=== PATIENT | female | born 1960 | race African-American/Black ===

== ENCOUNTER 2018-02-09 01:23 | Inpatient (IN) | payer OTHER ==
[2018-02-09] MEDS ORDERED: LORazepam 2 MG/ML VIAL ONE (01:43)
[2018-02-09] MEDS ORDERED: FENTANYL CITR 100 MCG/2 ML ONE (01:44)
[2018-02-09] MEDS ORDERED: NA CHLORIDE 0.9% 1,000 ML ONE (01:44)
[2018-02-09 02:28] LABS: Bilirubin Direct 0.2 mg/dL (0-0.2); Potassium 4.2 mmol/L (3.5-5.1); Protein, Total 7.7 g/dL (6.4-8.2)
[2018-02-09 02:29] LABS: Absolute Lymphocytes (CBC) 1.1 K/uL (0.7-4.9); Absolute Monocytes 0.3 K/uL (0.1-1.3); Absolute Neutrophil 4.2 K/uL (1.8-8.0); Basophils % 0.4 % (0-1.3); Eosinophils % 1.4 % (0-4.4); Hematocrit 41.2 % (36.0-45.0); Lymphocytes % 19.3 % (15.3-44.8); MCH 30.2 pg (27.0-35.0); MCV 87.8 fL (80-100); MPV 10.6 fL (7.6-11.3); Monocytes % 5.4 % (3.3-12.3); RBC Red Blood Cell Count 4.69 M/uL (3.86-4.86)
[2018-02-09 04:06] LABS: Urine Blood NEGATIVE (NEG); Urine Glucose NEGATIVE (NEG); Urine Protein NEGATIVE (NEG)
[2018-02-09 04:14] LABS: Urine Culture Reflex Order NOT NEEDED
[2018-02-09 04:15] LABS: Urine Bacteria <20 /HPF (<20); Urine RBC <5 /HPF (NONE SEEN)
--- NOTE | 2018-02-09 05:01 | ER ---
Nurse's Notes [facility] Name: Emmy Ayala Age: 57 yrs Sex: Female : 1960 Arrival Date: 02/09/2018 Time: 01:24 Bed 7 Private MD: Wade Tabares Diagnosis: Diverticular disease of intestine Presentation: 02/09 01:30 Presenting complaint: Patient states: Abdominal pain to LLQ, worsening over past 2 lp1 days; States hx of diverticulitis; Denies any nausea, vomiting. Transition of care: patient was not received from another setting of care. Onset of symptoms was February 09, 2018. Risk Assessment: Do you want to hurt yourself or someone else? Patient reports no desire to harm self or others. Initial Sepsis Screen: Does the patient meet any 2 criteria? No. Patient's initial sepsis screen is negative. Does the patient have a suspected source of infection? No. Patient's initial sepsis screen is negative. Care prior to arrival: None. 01:30 Method Of Arrival: Wheelchair lp1 01:30 Acuity: JANAK 3 lp1 Historical: - Allergies: 01:54 No Known Allergies; lp1 - Home Meds: 01:54 Lotensin Oral [Active]; citalopram 20 mg tab 1 tab once daily [Active]; lp1 - PMHx: 01:54 Hypertension; Depression; lp1 - PSHx: 01:54 Tubal ligation; lp1 - Immunization history:: Adult Immunizations up to date. - Social history:: Smoking status: Patient/guardian denies using tobacco. - Ebola Screening: : No symptoms or risks identified at this time. Screenin:54 Abuse screen: Denies threats or abuse. Denies injuries from another. Nutritional lp1 screening: No deficits noted. Tuberculosis screening: No symptoms or risk factors identified. Fall Risk None identified. Assessment: 01:50 General: Appears uncomfortable, Behavior is appropriate for age. Pain: Complains of lp1 pain in left lower quadrant Pain currently is 9 out of 10 on a pain scale. Quality of pain is described as sharp, Pain began 2-3 days ago. Aggravated by increased activity, repositioning. Neuro: Level of Consciousness is awake, alert, obeys commands, Oriented to person, place, time, situation. Cardiovascular: Patient's skin is warm and dry. Respiratory: Respiratory effort is even, unlabored. GI: Abdomen is flat, Bowel sounds present X 4 quads. Abdomen is tender to palpation in left lower quadrant Reports lower abdominal pain. : Denies burning with urination. EENT: No signs and/or symptoms were reported regarding the EENT system. Derm: Skin is intact, Skin is dry, Skin is normal. Musculoskeletal: Circulation, motion, and sensation intact. 02:07 Reassessment: CT notified of patient completing oral contrast at this time. lp1 03:00 Reassessment: Patient resting, eyes closed, respirations unlabored. lp1 04:00 Reassessment: Patient returned from bathroom; states pain tolerable at this time. lp1 05:00 Reassessment: Patient appears in no apparent distress at this time. Patient resting, lp1 eyes closed, respirations unlabored. 05:45 Reassessment: Attempted to call report at this time, nurse will call back. lp1 06:00 Reassessment: Patient ambulating to bathroom at this time; states pain returning, lp1 provider notified. Vital Signs: 01:30 BP 147 / 78; Pulse 57; Resp 16; Temp 98.9(O); Pulse Ox 99% on R/A; Weight 67.59 kg; lp1 Height 5 ft. 6 in. (167.64 cm); Pain 9/10; 02:30 BP 132 / 80; Pulse 52; Resp 16; Pulse Ox 99% on R/A; lp1 04:00 BP 138 / 80; Pulse 51; Resp 16; Pulse Ox 98% on R/A; lp1 05:00 BP 123 / 76; Pulse 52; Resp 16; Pulse Ox 99% on R/A; lp1 05:50 BP 129 / 82; Pulse 55; Resp 16; Pulse Ox 98% on R/A; lp1 01:30 Body Mass Index 24.05 (67.59 kg, 167.64 cm) lp1 ED Course: 01:24 Patient arrived in ED. am2 01:24 Wade Tabares MD is Private Physician. am2 01:30 [facility] snw 01:30 Antolin Do MD is Attending Physician. snw 01:33 Joelle Avila, SHAYY is Primary Nurse. lp1 01:39 Initial lab(s) drawn, by me, sent to lab. First set of blood cultures drawn by me, bp Second set of blood cultures drawn by me. Inserted saline lock: 22 gauge in right antecubital area, using aseptic technique. Blood collected. 01:49 Triage completed. lp1 01:50 Arm band placed on left wrist. lp1 01:54 Patient has correct armband on for positive identification. Placed in gown. Bed in low lp1 position. Call light in reach. Pulse ox on. NIBP on. 03:[address] via wheelchair. kw1 03:47 CT completed. Patient tolerated procedure well. Patient moved back from CT. kw1 03:49 CT Abd/Pelvis - W/Contrast In Process Unspecified. EDMS 03:57 Urine Microscopic Only Sent. ds4 03:57 Urine Culture Sent. ds4 04:00 Urine Dipstick--Ancillary (enter results) Sent. ds4 04:00 Basic Metabolic Panel Sent. ds4 04:00 CBC with Diff Sent. ds4 04:00 Hepatic Function Sent. ds4 05:00 Antolin Williamson MD is Hospitalizing Provider. ma2 05:40 No provider procedures requiring assistance completed. Patient admitted, IV remains in lp1 place. Administered Medications: 01:36 CANCELLED (none available): Phenergan 6.25 mg IVP once snw 01:46 Drug: NS 0.9% 1000 ml Route: IV; Rate: 125 ml/hr; Site: right antecubital; lp1 06:07 Follow up: IV Status: IV converted to saline lock lp1 01:46 Drug: fentaNYL (PF) 50 mcg Route: IVP; Site: right antecubital; lp1 02:30 Follow up: Response: Pain is decreased lp1 01:47 Drug: Ativan 0.5 mg Route: IVP; Site: right antecubital; lp1 02:30 Follow up: Response: Marked relief of symptoms lp1 05:12 Drug: Rocephin 1 grams Route: IV; Rate: 1 calculated rate; Site: right antecubital; lp1 06:06 Follow up: IV Status: Completed infusion; IV Intake: 10ml lp1 05:12 Drug: Flagyl 500 mg Volume: 100 ml; Route: IVPB; Rate: 200 ml/hr; Infused Over: 30 lp1 mins; Site: right antecubital; 06:07 Follow up: IV Status: Infusion continued upon admission lp1 06:06 Drug: fentaNYL (PF) 50 mcg Route: IVP; Site: right antecubital; lp1 06:07 Follow up: given prior to transfer to floor lp1 Intake: 06:06 IV: 10ml; Total: 10ml. lp1 Outcome: 05:00 Decision to Hospitalize by Provider. ma2 05:40 Condition: stable lp1 05:40 Instructed on the need for admit. 06:08 Admitted to Tele accompanied by tech, via wheelchair, room 402, with chart, Report lp1 called to SHAYY [place] 06:12 Patient left the ED. lp1 Signatures: Dispatcher [employer] EDGhazal Mota, BUSINESS TEAM LEADER-C BUSINESS TEAM LEADER-Csnw Joelle Avila RN RN lp1 Taj Garcia ds4 Gisella Apple Brian, RN RN bp Wilhelm, Kimberly kw1 Antolin Do MD MD mi2
--- NOTE | 2018-02-09 05:01 | EDPHYS ---
Physician Documentation [facility] Name: mEmy Ayala Age: 57 yrs Sex: Female : 1960 Arrival Date: 02/09/2018 Time: 01:24 Bed 7 Private MD: Wade Tabares ED Physician Antolin Do HPI: 02/09 01:33 This 57 yrs old Black Female presents to ER via Unassigned with complaints of Abdominal snw Pain. 01:33 The patient presents with abdominal pain in the lower abdomen, in the left lower snw quadrant. Onset: The symptoms/episode began/occurred gradually, 3 day(s) ago, and became worse this morning, and became persistent. The symptoms radiate to states pain moves in waves across abdomen to LLQ. Associated signs and symptoms: Pertinent positives: pt states she took a laxative as she felt constipated. The symptoms are described as constant, shooting. Severity of pain: At its worst the pain was moderate severe. The patient has experienced a previous episode. It is unknown whether or not the patient has recently seen a physician, Sees Dr. Tabares. Hx of diverticulitis x 1 episode. Historical: - Allergies: 01:54 No Known Allergies; lp1 - Home Meds: 01:54 Lotensin Oral [Active]; citalopram 20 mg tab 1 tab once daily [Active]; lp1 - PMHx: 01:54 Hypertension; Depression; lp1 - PSHx: 01:54 Tubal ligation; lp1 - Immunization history:: Adult Immunizations up to date. - Social history:: Smoking status: Patient/guardian denies using tobacco. - Ebola Screening: : No symptoms or risks identified at this time. ROS: 01:32 Eyes: Negative for injury, pain, redness, and discharge, ENT: Negative for injury, snw pain, and discharge, Neck: Negative for injury, pain, and swelling, Cardiovascular: Negative for chest pain, palpitations, and edema, Respiratory: Negative for shortness of breath, cough, wheezing, and pleuritic chest pain, Back: Negative for injury and pain, : Negative for injury, bleeding, discharge, and swelling, MS/Extremity: Negative for injury and deformity, Skin: Negative for injury, rash, and discoloration, Neuro: Negative for headache, weakness, numbness, tingling, and seizure, Psych: Negative for depression, anxiety, suicide ideation, homicidal ideation, and hallucinations. 01:32 Constitutional: Positive for body aches, malaise, poor PO intake. 01:32 Abdomen/GI: Positive for abdominal pain, abdominal cramps, abdominal distension. Exam: 01:32 Constitutional: This is a well developed, well nourished patient who is awake, alert, snw and in no acute distress. Head/Face: Normocephalic, atraumatic. Eyes: Pupils equal round and reactive to light, extra-ocular motions intact. Lids and lashes normal. Conjunctiva and sclera are non-icteric and not injected. Cornea within normal limits. Periorbital areas with no swelling, redness, or edema. ENT: Nares patent. No nasal discharge, no septal abnormalities noted. Tympanic membranes are normal and external auditory canals are clear. Oropharynx with no redness, swelling, or masses, exudates, or evidence of obstruction, uvula midline. Mucous membranes moist. Neck: Trachea midline, no thyromegaly or masses palpated, and no cervical lymphadenopathy. Supple, full range of motion without nuchal rigidity, or vertebral point tenderness. No Meningismus. Chest/axilla: Normal chest wall appearance and motion. Nontender with no deformity. No lesions are appreciated. Cardiovascular: Regular rate and rhythm with a normal S1 and S2. No gallops, murmurs, or rubs. Normal PMI, no JVD. No pulse deficits. Respiratory: Lungs have equal breath sounds bilaterally, clear to auscultation and percussion. No rales, rhonchi or wheezes noted. No increased work of breathing, no retractions or nasal flaring. Back: No spinal tenderness. No costovertebral tenderness. Full range of motion. Skin: Warm, dry with normal turgor. Normal color with no rashes, no lesions, and no evidence of cellulitis. MS/ Extremity: Pulses equal, no cyanosis. Neurovascular intact. Full, normal range of motion. Neuro: Awake and alert, GCS 15, oriented to person, place, time, and situation. Cranial nerves II-XII grossly intact. Motor strength 5/5 in all extremities. Sensory grossly intact. Cerebellar exam normal. Normal gait. Psych: Awake, alert, with orientation to person, place and time. Behavior, mood, and affect are within normal limits. 01:32 Abdomen/GI: Inspection: distension, that is mild, Bowel sounds: hyperactive, in all quadrants, Palpation: moderate abdominal tenderness, in all quadrants, severe abdominal tenderness, in the left lower quadrant, no appreciated organomegaly. Vital Signs: 01:30 BP 147 / 78; Pulse 57; Resp 16; Temp 98.9(O); Pulse Ox 99% on R/A; Weight 67.59 kg; lp1 Height 5 ft. 6 in. (167.64 cm); Pain 9/10; 02:30 BP 132 / 80; Pulse 52; Resp 16; Pulse Ox 99% on R/A; lp1 04:00 BP 138 / 80; Pulse 51; Resp 16; Pulse Ox 98% on R/A; lp1 05:00 BP 123 / 76; Pulse 52; Resp 16; Pulse Ox 99% on R/A; lp1 05:50 BP 129 / 82; Pulse 55; Resp 16; Pulse Ox 98% on R/A; lp1 01:30 Body Mass Index 24.05 (67.59 kg, 167.64 cm) lp1 MDM: 01:30 Patient medically screened. [facility] 02/09 01:32 Order name: Basic Metabolic Panel [facility] 02/09 01:32 Order name: CBC with Diff [facility] 02/09 01:32 Order name: Hepatic Function [facility] 02/09 01:32 Order name: Lipase; Complete Time: 03:04 [facility] 02/09 01:32 Order name: Urine Culture [facility] 02/09 01:32 Order name: Urine Microscopic Only; Complete Time: 04:44 [facility] 02/09 01:32 Order name: Blood Culture Adult (2) [facility] 02/09 01:32 Order name: Basic Metabolic Panel; Complete Time: 03:04 [facility] 02/09 01:32 Order name: CBC with Automated Diff; Complete Time: 03:04 [facility] 02/09 01:32 Order name: Liver (Hepatic) Function; Complete Time: 03:04 [facility] 02/09 03:58 Order name: Urine Dipstick--Ancillary (enter results); Complete Time: 04:44 ds4 02/09 05:26 Order name: Basic Metabolic Panel [facility] 02/09 05:26 Order name: Basic Metabolic Panel [facility] 02/09 05:26 Order name: CBC with Automated Diff EDMS 02/09 01:32 Order name: IV Saline Lock; Complete Time: 01:46 snw 02/09 01:32 Order name: Labs collected and sent; Complete Time: 01:47 snw 02/09 01:32 Order name: CT Abd/Pelvis - W/Contrast; Complete Time: 15:50 snw 02/09 03:58 Order name: Urine Dipstick-Ancillary (obtain specimen); Complete Time: 03:59 ds4 02/09 05:26 Order name: CONS Pharmacy Consult EDMS 02/09 05:26 Order name: NPO EDMS 02/09 05:26 Order name: CBC with Automated Diff EDMS Administered Medications: 01:36 CANCELLED (none available): Phenergan 6.25 mg IVP once snw 01:46 Drug: NS 0.9% 1000 ml Route: IV; Rate: 125 ml/hr; Site: right antecubital; lp1 06:07 Follow up: IV Status: IV converted to saline lock lp1 01:46 Drug: fentaNYL (PF) 50 mcg Route: IVP; Site: right antecubital; lp1 02:30 Follow up: Response: Pain is decreased lp1 01:47 Drug: Ativan 0.5 mg Route: IVP; Site: right antecubital; lp1 02:30 Follow up: Response: Marked relief of symptoms lp1 05:12 Drug: Rocephin 1 grams Route: IV; Rate: 1 calculated rate; Site: right antecubital; lp1 06:06 Follow up: IV Status: Completed infusion; IV Intake: 10ml lp1 05:12 Drug: Flagyl 500 mg Volume: 100 ml; Route: IVPB; Rate: 200 ml/hr; Infused Over: 30 lp1 mins; Site: right antecubital; 06:07 Follow up: IV Status: Infusion continued upon admission lp1 06:06 Drug: fentaNYL (PF) 50 mcg Route: IVP; Site: right antecubital; lp1 06:07 Follow up: given prior to transfer to floor lp1 Disposition: 04:58 Co-signature as Attending Physician, Antolin Do MD patient has diverticulitis ma2 with microabscess, no free air will admit for iv abx discussed and accepted by Dr. Williamson. 07:[address] Casas at 0658 am, he advised that he will transfer her care to the [facility] hospitalist today as he is planing to take a vecation and he will discuss that with him.. Disposition: 02/09/18 05:00 Hospitalization ordered by Antolin Williamson for Inpatient Admission. Preliminary diagnosis is Diverticular disease of intestine. - Bed requested for Telemetry/MedSurg (Inpatient). - Status is Inpatient Admission. lp1 - Condition is Stable. - Problem is an acute exacerbation. - Symptoms have improved. UTI on Admission? No Signatures: Dispatcher [employer] EDMS Cassia Rivas, RN RN kl Ghazal Basurto, AUTOMATION DEVELOPER-C AUTOMATION DEVELOPER-Csnw Joelle Avila RN RN 1 Taj Garcia ds4 Antolin Do MD MD [facility] Corrections: (The following items were deleted from the chart) 01:36 01:32 Phenergan 6.25 mg IVP once ordered. [facility] 04:59 04:58 Co-signature as Attending Physician, Antolin Do MD [place] [id number] 05:00 01:33 Associated signs and symptoms: Pertinent positives: pt states she took a laxative [facility] as she felt constipated, snw 05:00 01:33 Hx of diverticulitis x 1 episode. [place] [id number] 05:38 05:00 Hospitalization Ordered by Antolin Williamson MD for Inpatient Admission. Preliminary diagnosis is Diverticular disease of intestine. Bed requested for Telemetry/MedSurg (Inpatient). Status is Inpatient Admission. Condition is Stable. Problem is an acute exacerbation. Symptoms have improved. UTI on Admission? No. [facility] 06:12 05:38 02/09/2018 05:00 Hospitalization Ordered by Antolin Williamson MD for Inpatient lp1 Admission. Preliminary diagnosis is Diverticular disease of intestine. Bed requested for Telemetry/MedSurg (Inpatient). Status is Inpatient Admission. Condition is Stable. Problem is an acute exacerbation. Symptoms have improved. UTI on Admission? No. radha
[2018-02-09] MEDS ORDERED: CEFTRIAXONE/SWI 1gm 1 GM/10 ML SYR ONE (05:12)
[2018-02-09] MEDS ORDERED: METRONIDAZOLE 500mg IVPB 500 MG/100 ML BAG IV ONE (05:12)
[2018-02-09] MEDS ORDERED: MORPHINE 2 MG/ML SYR IV PRN (05:20)
[2018-02-09] MEDS: D5 0.45 NS 1,000 ML IV SCH ×2 (06:46→16:46)
[2018-02-09] MEDS ORDERED: BENAZEPRIL 20 MG TAB PO ONE (07:15)
[2018-02-09] MEDS ORDERED: INSULIN -REGULAR HUMAN 50 UNIT/0.5 ML ML SQ SCH (07:30)
[2018-02-09] MEDS: hydroCHLOROthiazide 25 MG TAB PO SCH (09:00)
--- NOTE | 2018-02-09 09:04 | RAD REPORT ---
EXAM DESCRIPTION: CT - Abdomen Pelvis W Contrast - 02/09/2018 3:49 am CLINICAL HISTORY: Abdominal pain. Left lower quadrant pain for 2 days COMPARISON: 2013 TECHNIQUE: Computed axial tomography of the abdomen and pelvis was obtained. 100 cc Isovue-300 is ad ministered intravenously. Oral contrast was given.Preliminary report was generated by [facility] and reviewed prior to this dictation All CT scans are performed using dose optimization technique as appropriate and may include automated exposure control or mA/KV adjustment according to patient size. FINDINGS: The liver, spleen, pancreas, adrenals and kidneys appear unremarkable. The appendix is normal caliber. Diverticula stem from the colon. The wall of the sigmoid colon is thickened. A minimal amount of extr aluminal air is present with a 15 millimeter phlegmonous collection. A discrete fluid-filled abscess is not present. A small amount of free fluid is seen. Pneumoperitoneum is not seen IMPRESSION: Sigmoid diverticulitis with minimal extraluminal air. A 15 millimeter phlegmonous collec tion is present without a fluid-filled abscess or free air
--- NOTE | 2018-02-09 10:10 | P.HP ---
Certification for Inpatient Patient admitted to: Observation With expected LOS: <2 Midnights Patient will require the following post-hospital care: None Practitioner: I am a practitioner with admitting privileges, knowledge of patient current condition, hospital course, and medical plan of care. Services: Services provided to patient in accordance with Admission requirements found in Title 42 Section 412.3 of the Code of Federal Regulations Patient History Date of Service: 02/09/18 Primary Care Provider: Raysa Reason for admission: Sigmoid diverticulitis History of Present Illness: Patient is an office patient of [employer] with a history of diverticulitis in and htn. She has been having stomach pains and constipation on and off since Sat. She finally came to the ER and was found to have sigmoid diverticulitis. Was admitted as she was not able tolerate PO intake Allergies No Known Drug Allergies Allergy (Verified 08/17/15 12:30) Unknown Home Medications: Benazepril HCl [Lotensin] 40 mg PO 1X 08/17/15 hydroCHLOROthiazide [Hydrodiuril] 25 mg PO DAILY 08/17/15 - Past Medical/Surgical History Diabetic: No -: HTN -: Tubal ligation Psychosocial/ Personal History: -1 year, children-3 - Social History Alcohol use: Yes CD- Drugs: No Caffeine use: Yes Review of Systems 10-point ROS is otherwise unremarkable Gastrointestinal: Nausea, Abdominal Pain, Constipation Physical Examination - Vital Signs Temperature: 98.9 F Blood Pressure: 129/82 Pulse: 55 Respirations: 16 - Physical Exam General: Alert, Mild distress HEENT: Atraumatic, PERRLA, Mucous membr. moist/pink, EOMI, Sclerae nonicteric Neck: Supple, 2+ carotid pulse no bruit, No LAD, Without JVD or thyroid abnormality Respiratory: Clear to auscultation bilaterally, Normal air movement Cardiovascular: Regular rate/rhythm, Normal S1 S2 Gastrointestinal: Normal bowel sounds, Tenderness Musculoskeletal: No tenderness Integumentary: No rashes Neurological: Normal gait, Normal speech, Normal strength at 5/5 x4 extr, Normal tone, Normal affect Lymphatics: No axilla or inguinal lymphadenopathy - Studies Laboratory Data (last 24 hrs) 02/09/18 01:40: WBC 5.7, Hgb 14.2, Hct 41.2, Plt Count 246 02/09/18 01:40: Sodium 140, Potassium 4.2, BUN 10, Creatinine 1.00, Glucose 92, Total Bilirubin 1.0, AST 22, ALT 19, Alkaline Phosphatase 87, Lipase 207 Assessment and Plan - Problems (Diagnosis) (1) Sigmoid diverticulitis Current Visit: Yes Status: Acute Plan: will keep her on fluids and flagyl for the day. Start clear liquids this evening. Advance as tolerated. (2) HTN (hypertension) Current Visit: Yes Status: Acute Plan: continue home medications. Hold if sbp is less than 90. Qualifiers: Hypertension type: essential hypertension Qualified Code(s): I10 - Essential (primary) hypertension Discharge Plan: Home Plan to discharge in: 48 Hours - Advance Directives Does patient have a Living Will: No Does patient have a Durable POA for Healthcare: No - Code Status/Comfort Care Code Status Assessed: No Code Status: Full Code Physician Review: Patient Assessed, Agree with Above Assessment and Plan Critical Care: No Time Spent Managing Pts Care (In Minutes): 465
[2018-02-09] MEDS ORDERED: ACETAMINOPHEN 325 MG TABLET PO PRN (11:38)
[2018-02-09] MEDS: ENOXAPARIN 40 MG/0.4 ML SQ SCH (16:46)
[2018-02-09] MEDS ORDERED: TRAMADOL HCL 50 MG TAB PO PRN (17:18)
[2018-02-09] MEDS ORDERED: MORPHINE 4 MG/ML SYR IV ONE (20:23)
[2018-02-09] MEDS: ONDANSETRON 4 MG/2 ML VIAL IV PRN (20:43)
[2018-02-09] MEDS ORDERED: metroNIDAZOLE 500 MG TABLET PO SCH (21:00)
[2018-02-10] MEDS: D5 0.45 NS 1,000 ML IV SCH ×3 (01:57→23:16)
[2018-02-10] MEDS: MORPHINE 2 MG/ML SYR IV PRN ×2 (01:57→09:22)
[2018-02-10] MEDS: PANTOPRAZOLE 40MG TABLET PO SCH (05:31)
[2018-02-10 06:17] LABS: Potassium 3.8 mmol/L (3.5-5.1)
[2018-02-10 06:37] LABS: Absolute Lymphocytes (CBC) 1.3 K/uL (0.7-4.9); Absolute Monocytes 0.2 K/uL (0.1-1.3); Absolute Neutrophil 1.7 K/uL (1.8-8.0); Basophils % 1.1 % (0-1.3); Eosinophils % 2.7 % (0-4.4); Hematocrit 38.2 % (36.0-45.0); Lymphocytes % 38.4 % (15.3-44.8); MCH 31.3 pg (27.0-35.0); MCV 88.9 fL (80-100); MPV 9.9 fL (7.6-11.3); Monocytes % 7.3 % (3.3-12.3)
[2018-02-10] MEDS: Levofloxacin500mg IV 500 MG/100 ML BAG IV SCH (09:23)
[2018-02-10] MEDS: hydroCHLOROthiazide 25 MG TAB PO SCH (09:23)
[2018-02-10] MEDS ORDERED: HYDROMORPHONE HCL 0.5 MG/0.5 ML INJ IV PRN (10:16)
[2018-02-10] MEDS: METRONIDAZOLE 500mg IVPB 500 MG/100 ML BAG IV SCH ×3 (11:47→23:16)
[2018-02-10] MEDS: ONDANSETRON 4 MG/2 ML VIAL IV PRN (11:47)
--- NOTE | 2018-02-10 13:32 | P.PN ---
Subjective Date of Service: 02/10/18 Primary Care Provider: Raysa Chief Complaint: Sigmoid diverticulitis Pt seen and examined at bedside. Chart Reviewed. Case DW with Gen Surgery. Currently complains of having pain. Denies N/v/Chest pain Review of Systems 10-point ROS is otherwise unremarkable Physical Examination - Vital Signs Temperature: 97.3 F Blood Pressure: 123/76 Pulse: 50 Respirations: 16 Pulse Ox (%): 100 - Physical Exam General: Alert, In no apparent distress HEENT: Atraumatic, PERRLA, EOMI Neck: Supple, JVD not distended Respiratory: Clear to auscultation bilaterally, Normal air movement Cardiovascular: Regular rate/rhythm, Normal S1 S2 Gastrointestinal: Normal bowel sounds, Tenderness (RLQ) Musculoskeletal: No tenderness Integumentary: No rashes Neurological: Normal speech, Normal tone, Normal affect Lymphatics: No axilla or inguinal lymphadenopathy - Studies Medications List Reviewed: Yes Assessment And Plan - Current Problems (Diagnosis) (1) Sigmoid diverticulitis Onset Date: 02/10/18 Current Visit: Yes Status: Acute Plan: Abd CT with Sigmoid Diverticulitis -IV levaquin and Flagyl for now -iV fluids and pain mgmt -General Surgery consulted. Appreciate Reccs -FLD and Medical mgmt (2) Nausea and vomiting Current Visit: No Status: Resolved (3) HTN (hypertension) Onset Date: 02/10/18 Current Visit: Yes Status: Chronic Qualifiers: Hypertension type: essential hypertension Qualified Code(s): I10 - Essential (primary) hypertension Discharge Plan: Home Plan to discharge in: 24 Hours Physician Review: Patient Assessed, Agree with Above Assessment and Plan
--- NOTE | 2018-02-10 14:38 | CON ---
Date of Consultation: 02/10/2018 Brief History Of Present Illness: The patient is a 57-year-old female who presents to the hospital with complaints of abdominal pain beginning in the suprapubic and lower infraumbilica l area. She states the pain was sharp, stabbing, associated with some nausea, vomiting. No fever or chills. She has had no change in her bowel or bladder habits as of late. She has not had a bowel m ovement as of today. She has a history of multiple episodes of diverticulitis in the past, predomina ntly on the sigmoid region. She thought that this episode felt somewhat different than those episode s because they predominantly occurred on the left lower quadrant. As this occurred in the infraumbil ical position, she felt that it was more likely something related to her gastrointestinal tract. She took a laxative and the symptoms got significantly worse. As such, she came to see Dr. Tabares and bert loweryleonila was admitted to the hospital with significant abdominal pain as described. Past Medical History: Significant for hypertension. Past Surgical History: Tubal ligation. Social History: She is for 1 year. She has 3 children. She denies smoking. She only drink s alcohol socially. She denies any recreational drug use. She works here at the hospital. Allergies: NO KNOWN DRUG ALLERGIES. Medications: Include Lotensin, hydrochlorothiazide. Review of Systems: A 10-point review of systems other than HPI, denies. Physical Examination: General: At the time of my examination, she is awake, alert, oriented. Psychiatric: She is appropriate conversive. HEENT: She is normocephalic. Her sclerae are anicteric. Her mucous membranes are moist. Oropharyn x is clear. Neck: Supple. No JVD. Chest: Normal expansion and excursion. Cardiovascular: Regular rate and rhythm. Pulmonary: Clear to auscultation bilaterally. Abdomen: Soft with positive left lower quadrant and suprapubic tenderness to palpation. Pain is mos t significant in the suprapubic position. She has no peritoneal signs. No involuntary guarding. Sh e has some mild voluntary guarding with deep palpation. Her abdomen is minimally distended at this t jesus. Extremities: No clubbing, cyanosis, or edema. Skin: Warm and dry. Vital Signs: BMI of 24. Her blood pressure 139/72, pulse is 47, respiratory rate 16, temperature 97 .7. Laboratory Data: Reveals a white blood count of 3.3, hemoglobin is 13.4 over hematocrit of 38.2, jeanette telet count is 206. Her neutrophils are normal at 50.5. Sodium is 142, potassium 3.8, chloride 108, carbon dioxide 30, BUN 4, creatinine 0.9. Her glucose is 101. Total bilirubin was 1.0 on admission , AST 22, ALT 19, alkaline phosphatase 87, lipase is 207. UA was negative. Down the line, she had a CT scan performed of the abdomen and pelvis, which was officially read by Dr. Trujillo as diverticul a stem from the colon. The wall of the sigmoid colon is thickened. A minimal amount of extraluminal air is present with a 15 mm phlegmonous collection. A discrete fluid-filled abscess is not present. A small amount of free fluid is present. Pneumoperitoneum is not seen. The official impression wa s that sigmoid diverticulitis with extraluminal air. A 15 mm phlegmonous collection is present witho ut a fluid-filled abscess or free air. Assessment And Plan: This is a 57-year-old female, who comes in with a recurrent episode of sigmoid diverticulitis. 1.IV fluid hydration. 2.N.p.o. status. 3.Antibiotic coverage. 4.Serial abdominal exams. 5.The patient will require colonoscopy as an outpatient after this episode completely resolves and a fter a specified amount of time of 6-8 weeks. She can follow up with Dr. Vines for this as he has s coped her in the past. Her last colonoscopy by report was about 5 years ago and polyps were noted at that time. Thank you for this interesting consult. MELANY/AVERY Voice ID: [id number] Report ID: [id number]
[2018-02-10] MEDS: ENOXAPARIN 40 MG/0.4 ML SQ SCH (17:35)
[2018-02-11 04:24] VITALS: TEMP 97.7
[2018-02-11] MEDS: PANTOPRAZOLE 40MG TABLET PO SCH (05:43)
[2018-02-11] MEDS: METRONIDAZOLE 500mg IVPB 500 MG/100 ML BAG IV SCH (05:43)
[2018-02-11] MEDS: D5 0.45 NS 1,000 ML IV SCH (08:00)
[2018-02-11] MEDS: hydroCHLOROthiazide 25 MG TAB PO SCH (08:26)
[2018-02-11] MEDS: Levofloxacin500mg IV 500 MG/100 ML BAG IV SCH (08:26)
[2018-02-11 08:31] VITALS: BP 119/65
[2018-02-11] MEDS ORDERED: MORPHINE 4 MG/ML SYR IV PRN (09:00)
[2018-02-11 09:35] VITALS: O2SAT 98
--- NOTE | 2018-02-11 10:30 | P.PN ---
Subjective Date of Service: 02/11/18 Primary Care Provider: Raysa Chief Complaint: Sigmoid diverticulitis Subjective: Improving (Patient is now pain free, had a bowel movement, tolerated diet well) Physical Examination - Vital Signs Temperature: 97.7 F Blood Pressure: 119/65 Pulse: 56 Respirations: 12 Pulse Ox (%): 100 - Physical Exam General: Alert, In no apparent distress, Cooperative HEENT: Mucous membr. moist/pink Gastrointestinal: Soft and benign, Non-distended, No ascites, No tenderness, No masses, No rebound, No guarding - Studies Microbiology Data (last 24 hrs): 02/09/18 03:50 Clean Catch Urine [place] Count - Final <10,000 CFU/ML. 02/09/18 03:50 Clean Catch Urine - Final Medications List Reviewed: Yes Assessment And Plan - Current Problems (Diagnosis) (1) Sigmoid diverticulitis Onset Date: 02/10/18 Current Visit: Yes Status: Acute Plan: - advance diet - ok to DC from surgical standpoint - follow up in clinic in 1-2 weeks - follow up with Dr. Lomax for colonoscopy Physician Review: Patient Assessed, Agree with Above Assessment and Plan
--- NOTE | 2018-02-11 14:13 | P.DS ---
Admission Date: 02/09/18 Discharge Date: 02/11/18 Primary Care Provider: Raysa Disposition: ROUTINE DISCHARGE Discharge Condition: GOOD Reason for Admission: Sigmoid diverticulitis Consultations: General surgery - Problems (1) Sigmoid diverticulitis Onset Date: 02/10/18 Status: Acute (2) Nausea and vomiting Status: Resolved (3) HTN (hypertension) Onset Date: 02/10/18 Status: Chronic Qualifiers: Hypertension type: essential hypertension Qualified Code(s): I10 - Essential (primary) hypertension Brief History of Present Illness: Patient is an office patient of [employer] with a history of diverticulitis in and htn. She has been having stomach pains and constipation on and off since Sat. She finally came to the ER and was found to have sigmoid diverticulitis. Was admitted as she was not able tolerate PO intake Hospital Course: Overall during the hospital stay patient remained stable Patient was admitted to the hospital for sigmoid colon diverticulitis recurrent episode. Abdominal CT was consistent with no perforation or abscess formation. General surgery was consulted who recommended IV antibiotics NPO and IV fluids at this time. Patient was kept on IV antibiotics for 24-48 hr had marked resolution in her symptoms and was switched over to oral antibiotics and had advancement of her diet. Patient tolerated her diet well. Her nausea and vomiting resolved her abdominal pain resolved as well and thus was discharged home under stable condition. Patient was asked to follow up with GI in about 6 weeks post discharge to have a repeat colonoscopy done at that time. Patient also was educated extensively on diet and exercise along with awaiting triggers that cause her to have diverticulitis. Patient demonstrated understanding and was asked to return to work after 1 week. Vital Signs/Physical Exam: Temp Pulse Resp BP Pulse Ox 97.7 F 56 12 119/65 100 02/11/18 10:30 02/11/18 10:30 02/11/18 10:30 02/11/18 10:30 02/11/18 10:30 General: Alert, In no apparent distress HEENT: Atraumatic, PERRLA, EOMI Neck: Supple, JVD not distended Respiratory: Clear to auscultation bilaterally, Normal air movement Cardiovascular: Regular rate/rhythm, Normal S1 S2 Gastrointestinal: Normal bowel sounds, No tenderness Musculoskeletal: No tenderness Integumentary: No rashes Neurological: Normal speech, Normal tone, Normal affect Lymphatics: No axilla or inguinal lymphadenopathy Laboratory Data at Discharge: WBC 3.3 K/uL (4.3-10.9) L D 02/10/18 05:36 Hgb 13.4 g/dL (12.0-15.0) 02/10/18 05:36 Hct 38.2 % (36.0-45.0) 02/10/18 05:36 Plt Count 206 K/uL (152-406) 02/10/18 05:36 Sodium 142 mmol/L (136-145) 02/10/18 05:36 Potassium 3.8 mmol/L (3.5-5.1) 02/10/18 05:36 BUN 4 mg/dL (7-18) L 02/10/18 05:36 Creatinine 0.90 mg/dL (0.55-1.3) 02/10/18 05:36 Glucose 101 mg/dL (74-106) 02/10/18 05:36 Total Bilirubin 1.0 mg/dL (0.2-1.0) 02/09/18 01:40 AST 22 U/L (15-37) 02/09/18 01:40 ALT 19 U/L (12-78) 02/09/18 01:40 Alkaline Phosphatase 87 U/L (45-117) 02/09/18 01:40 Lipase 207 U/L (73-393) 02/09/18 01:40 Home Medications: Benazepril HCl [Lotensin] 40 mg PO 1X 08/17/15 hydroCHLOROthiazide [Hydrodiuril*] 25 mg PO DAILY 08/17/15 Levofloxacin [Levaquin] 500 mg PO DAILY #14 tablet 02/11/18 Pantoprazole [Protonix Tab*] 40 mg PO DAILYAC #30 tab 02/11/18 metroNIDAZOLE [Flagyl] 500 mg PO Q8H #52 tablet 02/11/18 New Medications: Levofloxacin [Levaquin] 500 mg PO DAILY #14 tablet metroNIDAZOLE [Flagyl] 500 mg PO Q8H #52 tablet Pantoprazole [Protonix Tab*] 40 mg PO DAILYAC #30 tab Patient Discharge Instructions: Please f.u with PCP and GI in 1 to 2 week post discharge. GI for colonoscopy in 6 weeks. New medication. levaquin 500mg daily for 14 days. Flagyl 500mg q8h for 14 days Diet: Regular Activity: Ad garth Followup: Refugio Rojas MD [ACTIVE - CAN ADMIT] - Robin Vines MD [ASSOCIATE-ACTIVE - CAN ADMIT] -
== END 2018-02-11 12:52 | disposition home or self-care (01) | DRG 392 ==
LOC: ER 01:23 → ERHOLD 05:30 → 4TH 05:40
PROVIDERS: ADMIT Internal Medicine; ATTEND Family Medicine
DX: K57.32 Diverticulitis of large intestine without perforation or abscess without bleeding (principal); I10 Essential (primary) hypertension
CPT/HCPCS: 36415; 74177; 80048; 80076; 81003; 81015; 82962; 83690; 85025; 87040; 87086; 87088; 96361; 96365; 96368; 96375; 99285; J0696; J1650; J2270; J2405; J3010; J7030; Q9967

== ENCOUNTER 2018-08-03 06:20 | Day surgery (SDC) | payer OTHER ==
--- OUTSIDE RECORDS SUMMARY | 2018-08-03 06:34 | XMS REPORT | Clinical Summary ---
:1960 Author Organization [facility] Address [address] [place] [address] Care Team Providers Name Role Phone Danilo Godoy MD Primary Care Provider Allergies No Known Allergies Medications Medication Sig Dispensed Refills Start Date End Date Status amLODIPine (NORVASC) 5 Take 5 mg by mouth 0 Active mg tablet daily. losartan (COZAAR) 100 Take 100 mg by 0 Active MG tablet mouth daily. sodium,potassium,mag As directed for 354 mL 0 07/15/2018 Active sulfates (SUPREP BOWEL colonoscopy PREP KIT) 17.5-3.13-1.6 gram recon solnIndications: Diverticulitis of large intestine with perforation without abscess or bleeding, LLQ abdominal pain, Change in bowel habits, Rectal pain Active Problems Problem Noted Date Diverticulitis of large intestine with perforation without abscess or 2018 bleeding LLQ abdominal pain 07/15/2018 Change in bowel habits 07/15/2018 Rectal pain 07/15/2018 Encounters Date Type Specialty Care Team Description 07/20/2018 Telephone Gastroenterology Ayan Rojas RN 07/15/2018 Office Visit Gastroenterology Nancy Levin MD Diverticulitis of large intestine with perforation without abscess or bleeding (Primary Dx); LLQ abdominal pain; Change in bowel habits; Rectal pain 07/15/2018 Telephone Gastroenterology Bart Underwood MA after 08/02/2017 Family History Medical History Relation Name Comments Colon cancer Neg Hx Colon polyps Neg Hx Social History Tobacco Use Types Packs/Day Years Used Date Former Smoker Cigarettes 0.5 20 Smokeless Tobacco: Never Used Comments: Quit 30 years ago Alcohol Use Drinks/Week oz/Week Comments No Alcohol Habits Answer Date Recorded How often do you have a drink containing alcohol? Never 07/15/2018 How many drinks containing alcohol do you have on a typical Not asked day when you are drinking? How often do you have six or more drinks on one occasion? Not asked Sex Assigned at Date Recorded Not on file Job Start Date Occupation Industry Not on file Not on file Not on file Travel History Travel Start Travel End No recent travel history available. Last Filed Vital Signs Vital Sign Reading Time Taken Blood Pressure 121/73 07/15/2018 1:26 PM [employer] Pulse 63 07/15/2018 1:26 PM [employer] Temperature - - Respiratory Rate - - Oxygen Saturation - - Inhaled Oxygen Concentration - - Weight 67.6 kg (149 lb) 07/15/2018 1:26 PM [employer] Height 167.6 cm (5' 6") 07/15/2018 1:26 PM [employer] Body Mass Index 24.05 07/15/2018 1:26 PM [employer] Plan of Treatment Date Type Specialty Care Team Description 08/26/2018 Office Visit General Surgery Maurice Ragland MD [address] [facility] [address] [place], [place] [id number] 09/23/2018 Office Visit Gastroenterology Nancy Levin MD [address] [facility] [address] [place], [place] [id number] Health Maintenance Due Date Last Done Comments CERVICAL CANCER SCREENING 12/23/1979 BREAST CANCER SCREENING 2008 COLON CANCER SCREENING 2008 SHINGLES VACCINES (#1) 2008 INFLUENZA VACCINE Completed 02/16/2018, 02/15/2017 Results Not on fileafter 08/02/2017 Insurance Payer Benefit Plan / Group Subscriber ID Type Phone Address [employer] C[employer] OPEN ACCESS/NETWORK xxxxxxxxxxx HMO Advance Directives Patient has advance care planning documents on file. For more information, please contact:[facility] [id number] [place] [id number]
[2018-08-03] MEDS: Ringers Lactate 1,000 ML IV ONE ×2 (06:52→07:24)
[2018-08-03] MEDS ORDERED: SIMETHICONE 40 MG/ 0.6 ML ONE (07:00)
[2018-08-03] MEDS ORDERED: GLYCOPYRROLATE 0.2 MG/ML SYR ONE (07:41)
[2018-08-03] MEDS ORDERED: LIDOCAINE 1% MPF 5 ML VIAL ONE (07:41)
[2018-08-03] MEDS ORDERED: PROPOFOL 200 MG/20 ML VIAL IV ONE (07:41)
[2018-08-03 08:37] VITALS: BP 122/68; TEMP 97.2; O2SAT 100
== END 2018-08-03 09:00 | disposition home or self-care (01) ==
LOC: OR 06:20
PROVIDERS: ATTEND Internal Medicine Gastroenterology
PROC: 0DBP8ZX Excision of Rectum, Via Natural or Artificial Opening Endoscopic, Diagnostic (ICD-10-PCS; 2018-08-03)
PROC: 0DBB8ZX Excision of Ileum, Via Natural or Artificial Opening Endoscopic, Diagnostic (ICD-10-PCS; 2018-08-03)
PROC: 0DBM8ZX Excision of Descending Colon, Via Natural or Artificial Opening Endoscopic, Diagnostic (ICD-10-PCS; 2018-08-03)
PROC: 0DBK8ZX Excision of Ascending Colon, Via Natural or Artificial Opening Endoscopic, Diagnostic (ICD-10-PCS; principal; 2018-08-03 07:30)
DX: K63.89 Other specified diseases of intestine (principal); K57.30 Diverticulosis of large intestine without perforation or abscess without bleeding; K64.8 Other hemorrhoids; Z86.010 Personal history of colon polyps; I10 Essential (primary) hypertension; Z79.899 Other long term (current) drug therapy
CPT/HCPCS: 88305; J2704

== ENCOUNTER 2021-06-03 11:30 | Emergency (ER) | payer BC, OTHER ==
--- OUTSIDE RECORDS SUMMARY | 2021-06-03 11:33 | XMS REPORT | Continuity of Care Document ---
:1960 Author Organization [facility] t Address [address] [place] [address] Care Team Providers Name Role Phone Irvin Flores MD Primary Care Physician IRVIN FLORES Attending Clinician Unavailable NOVA Attending Clinician Unavailable SHAWNA LAMB Attending Clinician Unavailable DARWIN RAGLAND Attending Clinician Unavailable DARWIN RAGLAND Admitting Clinician Unavailable Payers Payer Name Policy Type Policy Number Effective Date Expiration Date S ource OPEN ACCESS [id number] HMO/POS/EPO/PPO - AETNA HMO/POS OPEN [id number] 2018 2018 00:00:00 ACCESS - CIGNA 00:00:00 CVCP-CIGNA PPO [id number] OUT OF STATE [id number] BCBS - PPO - BCBS Problems Condition Condition Condition Status Onset Resolution Last Treating Co mments Source Name Details Category Date Date Treatment Clinician Date Sleep-diso Sleep-diso Disease Active Last [facility]: t & Plan: o f 00 Formattin Medicin g of this e note might be different from the original. Pt with history and anatomy of the upper airway suggestiv e of sleep disordere d breathing .In addition has associate d non restorati ve sleep,noc turnal awakening , daytime sleepines s, Discussed with patient the pathophys iology of sleep apnea, diagnosis and treatment optionsWi ll go ahead and order a home sleep study and further managment as indicated Persistent Persistent Disease Active Last B aylor disorder disorder 8-04 Assessmen Col ji of of 00:00: t & Plan: of initiating initiating 00 Formattin Medicin or or g of this e maintainin maintainin note g sleep g sleep might be different from the original. Will evaluate for underlyin g sleep disorder and follow up closely Generalize Generalize Disease Active 2019-05 B aylor d anxiety d anxiety 24 [facility] disorder disorder 00:00: of 00 Medicin e Anxiety Anxiety Disease Active [facility] 05-18 [place] 00:00: of 00 Medicin e Hyperlipid Hyperlipid Disease [facility] Hypertensi Hypertensi Disease Active [facility] on on [facility] Medicin e Prediabete Prediabete Disease Active B [facility] s [facility] Medicin e Allergies, Adverse Reactions, Alerts This patient has no known allergies or adverse reactions. Social History Social Habit Start Date Stop Date Quantity Comments Source History of tobacco Cigarette Smoker [facility] use of Medicine History [facility] Alcohol Std Drinks of Med icine History [facility] Alcohol Binge of Medicine History [facility] Alcohol Comment of Medici ne Exposure to Not sure [facility] e SARS-CoV-2 (event) of Med icine Alcohol intake 2021-04-25 2021-04-25 .71 [facility]d [facility] 00:00:00 of Medicine Cigarettes smoked 2020-02-09 2020-02-09 [facility] current (pack per 00:00:00 00:00:00 of [facility] [employer] day) - Reported Cigarette 2020-02-09 2020-02-09 [facility] pack-years 00:00:00 00:00:00 of Medicine Tobacco use and 2020-02-09 2020-02-[address] [facility] exposure 00:00:00 00:00:00 non-user of Medicine History [facility] 2020-02-09 2020-02-09 4 [facility] ge Alcohol Frequency 00:00:00 00:00:00 of Medi [employer] Sex Ass[birth year] At [birth year] F [facility] [employer] 00:00:00 00:00:00 of Medicine Smoking Status Start Date Stop Date Source Ex-smoker 2020-02-09 00:00:00 2020-02-09 00:00:00 [facility] Medications Ordered Filled Start Stop Current Ordering Indication Dosage Frequency Signature Comments Components Source Medication Medication Date Date Medication? Clinician (SIG) Name Name Risedronate 2020-05 Yes [id number] 150mg Take 150 Daniel Sodium 150 2-09 mg by College MG TABS 00:00: mouth of 00 every 28 Medicin days. e atorvastati 2020-05 Yes [id number] 20mg Take 1 [facility] n (LIPITOR) 2-09 Tablet by Col lege 20 MG 00:00: mouth of tablet 00 daily. Medicin e trazodone 2020-05 Yes [id number] 150mg Take 1.5 [facility] (DESYREL) 2-09 Tablets by Dick ege 100 MG 00:00: mouth of tablet 00 nightly. Medicin e sumatriptan 2020-05 Yes [id number] 50mg Take 1 Daniel (IMITREX) 2-09 Tablet by Colle ge 50 MG 00:00: mouth of tablet 00 daily as Medicin needed for e Migraine. escitalopra 2020-05- Yes [id number] 20mg Take 1 [facility] m (LEXAPRO) 2-09 01-09 Tablet by Co llege 20 MG 00:00: 05:59 mouth of tablet 00 :00 daily for Medicin 30 days. e valacyclovi Yes [id number] 1000mg TAKE 1 [facility] r (VALTREX) 9-27 TABLET BY Col lege 1 g tablet 00:00: MOUTH of 00 DAILY Medicin e atorvastati 2020- No 20mg Take 1 [place] juan josé n (LIPITOR) 6-30 12-09 Tablet by Co llege 20 MG 00:00: 00:00 mouth of tablet 00 :00 daily. Medicin e escitalopra 2020- No 20mg Take 1 [place] juan josé m (LEXAPRO) 6-25 12- Tablet by Co llege 20 MG 00:00: 00:00 mouth of tablet 00 :00 daily for Medicin 30 days. e trazodone 2020- No 150mg Take 1.5 [facility] (DESYREL) 4-29 12-09 Tablets by Col lege 100 MG 00:00: 00:00 mouth of tablet 00 :00 nightly. Medicin e Risedronate 2020- No [id number] 150mg Take 150 [facility] Sodium 150 09-07 12-09 mg by [place] MG TABS 00:00: 00:00 mouth of 00 :00 every 28 Medicin days. e cyclobenzap Yes [id number] 5mg Take 1 [facility] rine 4-09 Tablet by [place] (FLEXERIL) 00:00: mouth 3 of 5 MG tablet 00 times Medicin daily as e needed for Pain. Budesonide- 2020- No [id number] 1{puff} Inhale 1 [facility] Formoterol 08-24- Puff by [facility] ge Fumarate 00:00: 00:00 mouth two of (SYMBICORT) 00 :00 times Medicin 80-4.5 daily. e MCG/ACT AERO albuterol 2020- No [id number] 90ug Inhale 1-2 [facility] 108 (90 08-24- Puffs by [place] base) 00:00: 00:00 mouth of mcg/act 00 :00 every 4 Medicin inhaler hours as e needed for Wheezing. May substitute formulary preferred, generic, brand, or alternativ e. hydrochloro 2019-05 Yes [id number] 25mg Take 1 [facility] thiazide 2-30 Tablet by Oneal munson (HYDRODIURI 00:00: mouth of L) 25 MG 00 daily. Medicin tablet e Immunizations Ordered Immunization Filled Immunization Date Status Commen ts Source Name Name Influenza Quad-PF 2021-02-15 Completed [facility] 00:00:00 of Medicine Pfizer SARS-CoV-2 2020-10-09 Completed [facility] Vaccination 00:00:00 of Medicine Pfizer SARS-CoV-2 2020-09-18 Completed [facility] Vaccination 00:00:00 of Medicine Tdap 2020-04-13 Completed [facility] 00:00:00 of Medicine Zoster Recombinant 2020-04-13 Completed [facility] 00:00:00 of Medicine Influenza Quad-PF 2020-02-21 Completed [facility] 00:00:00 of Medicine Influenza (whole) 2020-02-09 Completed [facility] 00:00:00 of Medicine Zoster Recombinant 2020-02-09 Completed [facility] 00:00:00 of Medicine Vital Signs Vital Name Observation Time Observation Value Comments Source Systolic blood 2021-04-25 21:47:00 140 mm[Hg] [facility] pressure [facility] Diastolic blood 2021-04-25 21:47:00 84 mm[Hg] [facility] Heart rate 2021-04-25 21:47:00 67 /min [facility] Body temperature 2021-04-25 21:47:00 36.56 Kami [facility] Respiratory rate 2021-04-25 21:47:00 18 /min [facility] Body height 2021-04-25 21:47:00 167.6 cm [facility] Body weight 2021-04-25 21:47:00 72.122 kg [facility] BMI 2021-04-25 21:47:00 25.66 kg/m2 [facility] Oxygen saturation in 2021-04-25 21:47:00 98 /min [facility] Arterial blood by [facility] Pulse oximetry Procedures This patient has no known procedures. Plan of Care Planned Activity Planned Date Details Comments Source Future Scheduled 2021-04-25 COMPREHENSIVE METABOLIC Ordered: [facility] Test 16:25:30 PANEL [code = 75837-0] 04/25/2021 of Me dicine Future Scheduled 2021-04-25 CBC W/O DIFF W PLT Ordered: [facility] Test 16:25:30 [code = 6690-2] 04/25/2021 of Medicine Future Scheduled 2021-04-25 TSH REFLEX TO FREE T4 Ordered: [facility] Test 16:25:30 [code = 3016-3] 04/25/2021 of Medicine Future Scheduled 2021-04-25 HEMOGLOBIN A1C [code = Ordered: B [facility] Test 16:25:30 4548-4] 04/25/2021 of Medicine Future Scheduled 2021-04-25 CT HEAD WO CONTRAST 1 Occurrences [facility] Test 16:25:30 [code = 64315-3] starting of Medicine 04/25/2021 until 04/25/2022 Future Scheduled 2021-04-[address] [facility] Test 15:48:55 (procedure) [code = of Medic ine 370418521] Future Scheduled 2021-04-25 Human immunodeficiency B [facility] Test 15:48:55 virus screening of Medicine (procedure) [code = 669695122] Future Scheduled 2021-04-25 Screening for malignant [facility] Test 15:48:55 neoplasm of breast of Medici ne (procedure) [code = 495376949] Future Scheduled 2021-04-25 COVID-19 Vaccine (3 - Ba [facility] Test 15:48:55 Booster for Pfizer of Medici ne series) [code = COVID-19 Vaccine (3 - Booster for Pfizer series)] Future Scheduled 2021-04-25 Screening for malignant [facility] Test 15:48:55 neoplasm of cervix of Medici ne (procedure) [code = 032246064] Future Scheduled 2021-04-25 Screening for malignant [facility] Test 15:48:55 neoplasm of colon of Medicin e (procedure) [code = 474135196] Future Scheduled 2021-04-25 TETANUS SHOT (ADULT) [facility] Test 15:48:55 [code = TETANUS SHOT of Medi cine (ADULT)] Encounters Start End Encounter Admission Attending Care Care Encounter Source Date/Time Date/Time Type Type Clinicians Facility Department ID 2021-05-30 2021-05-30 Outpatient [facility] [id number] [facility] 14:52:22 14:52:22 Colleg e of Medicin e 2021-04-25 2021-04-25 Office MARSHALL FLORES [id number] [facility] 15:43:48 17:22:00 Visit KENYA AMBULATOR [id number] College Y [id number] [facility] [id number] Medi rosibel 300 e 2020-12-11 2020-12-11 Outpatient NOVA [facility] [id number] [facility] 14:21:26 14:31:33 [facility]in e 2020-10-01 2020-10-01 Outpatient [facility] [id number] [facility] 07:30:32 15:15:46 Colleg e of Medicin e 2020-09-13 2020-09-13 Outpatient ZAINAB [facility] [id number] [facility] 14:46:58 15:15:48 [facility]IP[facility] Medicin e Results Test Description Test Time Test Comments Results Result Sourc e Comments TISSUE EXAM 2018-09-28 Surgical Pathology 13:13:00 Report Case: [id number] Authorizing Provider: Maurice Ragland MD Collected: 09/20/2018 1655 Ordering Location: [facility] Received: 09/21/2018 0837 SERVICES Pathologist: Julio C Suresh MD Specimens: A) - Large Intestine, Colon - Sigmoid, RECTUM SIGMOID ANASTOMOSIS RINGS B) - Omentum A. COLON, SIGMOID, LOWER ANTERIOR RESECTION: - MULTIPLE DIVERTICULA WITH REACTIVE CHANGES - VIABLE SURGICAL RESECTION MARGINSB. OMENTUM, EXCISION: - FIBROADIPOSE TISSUE WITH MESOTHELIAL LINING AND CONGESTION Signing Pathologist Direct Phone Line: [phone] lly signed by Julio C Suresh MD on 09/28/2018 at 1:13 [id number], [id number] laparoscopy, low anterior resection robotic-assisted laparoscopic anterior resection, splenic flexure takedown, ICG. Preoperative and postoperative diagnosis: Diverticulitis of colon. A. Large intestine, colon sigmoid, rectum sigmoid, anastomosis rings.B. OmentumThis case is received in two parts. Received in formalin labeled "sigmoid colon tissue" is a 21-cm length of small bowel with diameter of 2.5 cm with attached pericolonic fat measuring 15 x 2 x 0.5 cm with two open margins, two detached annular mucosal donuts measuring 1.5 x 1.5 x 0.5 cm and 2 x 2 x 0.5 cm. The serosal surface of the colon is markedly hyperemic and the pericolonic fat displays hemorrhage. There are multiple intact diverticula ranging from 1 x 1 x 0.5 cm to 1 x 1 x 0.9 cm which begin 1.5 and 2 cm from either margin. The surrounding muscular wall of the diverticula measures up to 0.8 cm and is indurated. There are no discrete masses or lymph nodes seen within the pericolonic fat.Both of the mucosal donuts are markedly edematous and medley-red without discrete lesions identified. Ink code: One margin of colon inked black and the smaller mucosal donut inked black.Quality Control Lab Tech sections are submitted: Section code: Cassette A1 en face ends of colon and pericolonic margin; A2-A4 diverticula; A5 donuts. Part B is received in formalin labeled "omentum tissue" and is an irregular portion of vascularized adipose tissue consistent with omentum measuring 10 x 4.5 x 0.5 cm. Due to the fragmented nature of the specimen the margin cannot be determined.The surface displays no discrete masses and no lymph nodes are identified within the vascularized adipose tissue. Quality Control Lab Tech sections are submitted in Cassettes B1-B3. KM/bc Performed. CYTOLOGY 2018-09-22 Medical Cytology Report 14:55:00 Case: [id number] Authorizing Provider: Maurice Ragland MD Collected: 09/20/2018 [id number] Ordering Location: [facility] Received: 09/21/2018 1005 SERVICES Pathologist: Shaista Thomas MD Specimen: Pelvic PELVIC FLUID (CYTOSPINS): - NEGATIVE FOR MALIGNANCY Signing Pathologist Direct Phone Line: [phone] lly signed by Shaista Thomas MD on 09/22/2018 at 2:55 PMScant lymphoid cells (mainly small forms) [id number] s of colon, status post laparoscopyPELVIC FLUID25 mls yellow; 4 cytospinsCollected: [id number]: [id number][facility], Department of Pathology, [address] [place] [address], [facility], [facility] of [facility], [address] [place] [address], [facility]xm[facility], Department of Pathology, [address] [place] [address], BASIC METABOLIC PANEL 2018-09-22 06:27:00 Test Item Value Reference Range Interpretation Comme nts SODIUM (BEAKER) (test code 139 meq/L 136-145 = 381) POTASSIUM (BEAKER) (test 3.4 meq/L 3.5-5.1 L code = 379) CHLORIDE (BEAKER) (test 107 meq/L 98-107 code = 382) CO2 (BEAKER) (test code = 26 meq/L 22-29 355) BLOOD UREA NITROGEN 6 mg/dL 7-21 L (BEAKER) (test code = 354) CREATININE (BEAKER) (test 0.84 mg/dL 0.57-1.25 code = 358) GLUCOSE RANDOM (BEAKER) 132 mg/dL 70-105 H (test code = 652) CALCIUM (BEAKER) (test code 9.0 mg/dL 8.4-10.2 = 697) EGFR (BEAKER) (test code = 84 mL/min/1.73 sq m ESTIMATED GFR IS NOT 1092) ACCURATE CRE ATININE CLEARANCE IN RI EDICTING GLOMERULAR FILT RATION RATE. ESTIMATED GFR IS NOT APPLICABLE FOR DIALYSIS PATIENTS. CBC (HEMOGRAM ONLY)2018-09-22 05:53:00 Test Item Value Reference Range Interpretation Comments WHITE BLOOD CELL COUNT (BEAKER) 6.7 K/ L 3.5-10.5 (test code = 775) RED BLOOD CELL COUNT (BEAKER) 3.65 M/ L 3.93-5.22 L (test code = 761) HEMOGLOBIN (BEAKER) (test code = 10.8 GM/DL 11.2-15.7 L 410) HEMATOCRIT (BEAKER) (test code = 32.5 % 34.1-44.9 L 411) MEAN CORPUSCULAR VOLUME (BEAKER) 89.0 fL 79.4-94.8 (test code = 753) MEAN CORPUSCULAR HEMOGLOBIN 29.6 pg 25.6-32.2 (BEAKER) (test code = 751) MEAN CORPUSCULAR HEMOGLOBIN CONC 33.2 GM/DL 32.2-35.5 (BEAKER) (test code = 752) RED CELL DISTRIBUTION WIDTH 13.1 % 11.7-14.4 (BEAKER) (test code = 412) PLATELET COUNT (BEAKER) (test 166 K/CU MM 150-450 code = 756) MEAN PLATELET VOLUME (BEAKER) 11.1 fL 9.4-12.3 (test code = 754) NUCLEATED RED BLOOD CELLS 0 /100 WBC 0-0 (BEAKER) (test code = 413) BASIC METABOLIC [id number] 05:53:00 Test Item Value Reference Range Interpretation Comments SODIUM (BEAKER) 142 meq/L 136-145 (test code = 381) POTASSIUM (BEAKER) 3.6 meq/L 3.5-5.1 (test code = 379) CHLORIDE (BEAKER) 112 meq/L 98-107 H (test code = 382) CO2 (BEAKER) (test 23 meq/L 22-29 code = 355) BLOOD UREA NITROGEN 8 mg/dL 7-21 (BEAKER) (test code = 354) CREATININE (BEAKER) 0.75 mg/dL 0.57-1.25 (test code = 358) GLUCOSE RANDOM 97 mg/dL 70-105 (BEAKER) (test code = 652) CALCIUM (BEAKER) 8.7 mg/dL 8.4-10.2 (test code = 697) EGFR (BEAKER) (test 96 mL/min/1.73 ESTIMA JANICE GFR IS code = 1092) sq m NOT ACCURATE CREATININE CLEARANCE IN PREDICTING GLOMERULAR FILTRATION RATE . ESTIMATED GFR I S NOT APPLICABLE FOR DIALYSIS PATIEN TS. CBC (HEMOGRAM ONLY)2018-09-21 04:59:00 Test Item Value Reference Range Interpretation Comments WHITE BLOOD CELL COUNT (BEAKER) 12.3 K/ L 3.5-10.5 H (test code = 775) RED BLOOD CELL COUNT (BEAKER) 3.85 M/ L 3.93-5.22 L (test code = 761) HEMOGLOBIN (BEAKER) (test code = 11.5 GM/DL 11.2-15.7 410) HEMATOCRIT (BEAKER) (test code = 34.2 % 34.1-44.9 411) MEAN CORPUSCULAR VOLUME (BEAKER) 88.8 fL 79.4-94.8 (test code = 753) MEAN CORPUSCULAR HEMOGLOBIN 29.9 pg 25.6-32.2 (BEAKER) (test code = 751) MEAN CORPUSCULAR HEMOGLOBIN CONC 33.6 GM/DL 32.2-35.5 (BEAKER) (test code = 752) RED CELL DISTRIBUTION WIDTH 13.1 % 11.7-14.4 (BEAKER) (test code = 412) PLATELET COUNT (BEAKER) (test 192 K/CU MM 150-450 code = 756) MEAN PLATELET VOLUME (BEAKER) 10.8 fL 9.4-12.3 (test code = 754) NUCLEATED RED BLOOD CELLS 0 /100 WBC 0-0 (BEAKER) (test code = 413) POCT-GLUCOSE [id number] 12:18:00 Test Item Value Reference Range Interpretation Comments POC-GLUCOSE METER 93 mg/dL 70-[address] [facility] 6720 (BEAKER) (test code = [place] [address] 1538) CBC WITH PLATELET COUNT + MANUAL [id number] 16:10:00 Test Item Value Reference Range Interpretation Comments WHITE BLOOD CELL COUNT (BEAKER) 3.2 K/ L 3.5-10.5 L (test code = 775) RED BLOOD CELL COUNT (BEAKER) 4.66 M/ L 3.93-5.22 (test code = 761) HEMOGLOBIN (BEAKER) (test code = 13.8 GM/DL 11.2-15.7 410) HEMATOCRIT (BEAKER) (test code = 41.1 % 34.1-44.9 411) MEAN CORPUSCULAR VOLUME (BEAKER) 88.2 fL 79.4-94.8 (test code = 753) MEAN CORPUSCULAR HEMOGLOBIN 29.6 pg 25.6-32.2 (BEAKER) (test code = 751) MEAN CORPUSCULAR HEMOGLOBIN CONC 33.6 GM/DL 32.2-35.5 (BEAKER) (test code = 752) RED CELL DISTRIBUTION WIDTH 12.9 % 11.7-14.4 (BEAKER) (test code = 412) PLATELET COUNT (BEAKER) (test 274 K/CU MM 150-450 code = 756) MEAN PLATELET VOLUME (BEAKER) 11.0 fL 9.4-12.3 (test code = 754) NUCLEATED RED BLOOD CELLS 0 /100 WBC 0-0 (BEAKER) (test code = 413) (CELLAVISION MANUAL DIFF)2018-09-13 16:10:00 Test Item Value Reference Range Interpretation Comments NEUTROPHILS - REL 40 % (CELLAVISION)(BEAKER) (test code = 2816) LYMPHOCYTES - REL 44 % (CELLAVISION)(BEAKER) (test code = 2817) MONOCYTES - REL 6 % (CELLAVISION)(BEAKER) (test code = 2818) EOSINOPHILS - REL 1 % (CELLAVISION)(BEAKER) (test code = 2819) BASOPHILS - REL 1 % (CELLAVISION)(BEAKER) (test code = 2820) ATYPICAL LYMPHOCYTES - REL 7 % 0-0 H (CELLAVISION)(BEAKER) (test code = 2829) NEUTROPHILS - ABS 1.28 K/ul 1.56-6.13 L (CELLAVISION)(BEAKER) (test code = 2830) LYMPHOCYTES - ABS 1.41 K/ul 1.18-3.74 (CELLAVISION)(BEAKER) (test code = 2831) MONOCYTES - ABS 0.19 K/uL 0.24-0.36 L (CELLAVISION)(BEAKER) (test code = 2832) EOSINOPHILS - ABS 0.03 K/uL 0.04-0.36 L (CELLAVISION)(BEAKER) (test code = 2834) BASOPHILS - ABS 0.03 K/uL 0.01-0.08 (CELLAVISION)(BEAKER) (test code = 2835) ATYPICAL LYMPHOCYTES - ABS 0.22 K/uL 0.00-0.00 H (CELLAVISION)(BEAKER) (test code = 2858) TOTAL COUNTED (BEAKER) (test code = 100 1351) SMUDGE CELLS (BEAKER) (test code = Present 1371) GIANT PLATELETS (BEAKER) (test code Present = 313) POLYCHROMATOPHILLIC RBCS(BEAKER) 1+ few (test code = 478) ANISOCYTOSIS (BEAKER) (test code = 1+ few 961) PLATELET CONCENTRATION Adequate (CELLAVISION)(BEAKER) (test code = 3438) Received comment: User comments: Slide comments:COMPREHENSIVE METABOLIC PANEL 2018-09-13 10:37:00 Test Item Value Reference Range Interpretation Comments TOTAL PROTEIN 7.0 gm/dL 6.0-8.3 (BEAKER) (test code = 770) ALBUMIN (BEAKER) 4.3 g/dL 3.5-5.0 (test code = 1145) ALKALINE PHOSPHATASE 71 U/L 40-150 (BEAKER) (test code = 346) BILIRUBIN TOTAL 1.3 mg/dL 0.2-1.2 H (BEAKER) (test code = 377) SODIUM (BEAKER) (test 144 meq/L 136-145 code = 381) POTASSIUM (BEAKER) 4.1 meq/L 3.5-5.1 (test code = 379) CHLORIDE (BEAKER) 106 meq/L 98-107 (test code = 382) CO2 (BEAKER) (test 32 meq/L 22-29 H code = 355) BLOOD UREA NITROGEN 14 mg/dL 7-21 (BEAKER) (test code = 354) CREATININE (BEAKER) 0.93 mg/dL 0.57-1.25 (test code = 358) GLUCOSE RANDOM 86 mg/dL 70-105 (BEAKER) (test code = 652) CALCIUM (BEAKER) 10.1 mg/dL 8.4-10.2 (test code = 697) AST (SGOT) (BEAKER) 19 U/L 5-34 (test code = 353) ALT (SGPT) (BEAKER) 13 U/L 6-55 (test code = 347) EGFR (BEAKER) (test 75 mL/min/1.73 ESTIMA JANICE GFR IS code = 1092) sq m NOT ACCURATE CREATININE CLEARANCE IN PREDICTING GLOMERULAR FILTRATION RATE . ESTIMATED GFR I S NOT APPLICABLE FOR DIALYSIS PATIEN TS. PT/[id number] 10:25:00 Test Item Value Reference Range Interpretation Comments PROTIME (BEAKER) (test code = 12.6 seconds 11.7-14.7 759) INR (BEAKER) (test code = 370) 1.0 <=5.9 PARTIAL THROMBOPLASTIN TIME 34.3 seconds 22.5-36.0 (BEAKER) (test code = 760) RECOMMENDED COUMADIN/WARFARIN INR THERAPY RANGESSTANDARD DOSE: 2.0 - 3.0 Includes: PROPHYLAXIS forvenous thrombosis, systemic embolization; TREATMENT for venous thrombosis and/or pulmonary embolus.HIGH RISK: Target INR is 2.5-3.5 for patients with mechanical heart valves.
[2021-06-03] MEDS ORDERED: LIDOCAINE 4% PATCH ONE (12:39)
[2021-06-03] MEDS ORDERED: CYCLOBENZAPRINE 10 MG TAB ONE (12:39)
[2021-06-03] MEDS ORDERED: KETOROLAC 30 MG/ML INJ ONE (12:39)
--- NOTE | 2021-06-03 13:55 | RAD REPORT ---
EXAM DESCRIPTION: RAD - Lumbar Spine 3 Views - 06/03/2021 1:45 pm CLINICAL HISTORY: LOWER BACK PAIN COMPARISON: No comparisons FINDINGS: A three-view lumbar spine examination was performed. Lumbar bodies are normal in height and alignment. No fracture or acute bony process seen. No disc spa ce narrowing. Mild lower lumbar facet joint degenerative change. No pars defects identified. IMPRESSION: Negative Lumbar Spine examination. Concerns for disc herniation, central canal abnormality or occult bone process can be addressed with follow-up outpatient MR imaging.
--- NOTE | 2021-06-03 13:59 | EDPHYS ---
Physician Documentation [facility] Name: Emmy Ayala Age: 60 yrs Sex: Female : 1960 Arrival Date: 06/03/2021 Time: 11:38 Bed 30 Private MD: ED Physician João Ortiz HPI: 06/03 11:58 This 60 yrs old Black Female presents to ER via Unassigned with complaints of Back pm1 Pain, Leg Pain. 11:58 The patient presents with pain that is acute. The symptoms are located in the low back. pm1 Onset: The symptoms/episode began/occurred 3 week(s) ago. The pain radiates to the right leg. Associated signs and symptoms: Pertinent negatives: dysuria, fever, numbness, tingling, weakness. The problem was sustained from unknown cause. Modifying factors: The patient symptoms are alleviated by nothing, the patient symptoms are aggravated by nothing. Severity of symptoms: in the emergency department the symptoms are actually worse. The patient has not experienced similar symptoms in the past. The patient has not recently seen a physician. 13:34 Patient got a rowing machine for [employer] and she believes that she may have injured pm1 herself with the rowing motion. Historical: - PMHx: 14:09 Depression; Hypertension; jh5 - Immunization history:: Adult Immunizations up to date. - Social history:: Smoking status: Patient denies any tobacco usage or history of. ROS: 11:58 Constitutional: Negative for fever, chills, and weight loss, Cardiovascular: Negative pm1 for chest pain, palpitations, and edema, Respiratory: Negative for shortness of breath, cough, wheezing, and pleuritic chest pain, Abdomen/GI: Negative for abdominal pain, nausea, vomiting, diarrhea, and constipation. 11:58 : Negative for injury, bleeding, discharge, and swelling, MS/Extremity: Negative for injury and deformity, Skin: Negative for injury, rash, and discoloration, Neuro: Negative for headache, weakness, numbness, tingling, and seizure. 11:58 Back: Positive for of the left low back and left buttocks. 11:58 All other systems are negative. Exam: 11:58 Constitutional: This is a well developed, well nourished patient who is awake, alert, pm1 and in no acute distress. Head/Face: Normocephalic, atraumatic. 11:58 Skin: Warm, dry with normal turgor. Normal color with no rashes, no lesions, and no evidence of cellulitis. MS/ Extremity: Pulses equal, no cyanosis. Neurovascular intact. Full, normal range of motion. 11:58 Cardiovascular: Exam negative for acute changes, Rate: normal, Rhythm: regular, Pulses: no pulse deficits are appreciated. 11:58 Respiratory: Exam negative for acute changes, respiratory distress, shortness of breath. 11:58 Back: vertebral tenderness, is not appreciated, muscle spasm, is appreciated in the left low back. 11:58 Neuro: Exam negative for acute changes, Orientation: is normal, Mentation: is normal, Motor: is normal, moves all fours, Sensation: is normal, no obvious gross deficits. Vital Signs: 14:08 BP 122 / 81; Pulse 68; Resp 18; Temp 98.7; Pulse Ox 99% ; Weight 63.5 kg; Height 5 ft. [facility] 9 in. (175.26 cm); 14:08 Body Mass Index 20.67 (63.50 kg, 175.26 cm) [facility] MDM: 11:54 Patient medically screened. pm1 12:48 ED course: 7/10 pain level at the moment. Offered more medications, she would like to pm1 see if current medications given with work further. 13:31 ED course: Patient's pain 0/10. Improved with medications and stretching exercises. pm1 13:31 Data reviewed: vital signs. Data interpreted: Pulse oximetry: on room air is 99 %. pm1 Interpretation: normal. 13:57 Counseling: I had a detailed discussion with the patient and/or guardian regarding: the pm1 historical points, exam findings, and any diagnostic results supporting the discharge/admit diagnosis, radiology results, the need for outpatient follow up, to return to the emergency department if symptoms worsen or persist or if there are any questions or concerns that arise at home. 06/03 12:58 Order name: Lumbar Spine (3 Views) XRAY; Complete Time: 13:57 pm1 Administered Medications: 12:45 Drug: Ketorolac 60 mg Route: IM; Site: left deltoid; ll1 12:45 Drug: Flexeril (cyclobenzaprine) 10 mg Route: PO; ll1 12:46 Drug: Lidoderm Patch 5 % (700 mg/patch) 1 patches Route: Topical; Site: affected area; ll1 Disposition: 06/04 07:40 Co-signature as Attending Physician, João Ortiz MD I agree with the assessment and [facility] plan of care. Disposition Summary: 06/03/21 13:58 Discharge Ordered Location: Home pm1 Problem: new pm1 Symptoms: have improved pm1 Condition: Stable pm1 Diagnosis - Lumbago with sciatica, right side pm1 Followup: pm1 - With: Emergency Department - When: As needed - Reason: Worsening of condition Followup: pm1 - With: Private Physician - When: 2 - 3 days - Reason: Recheck today's complaints, Continuance of care, Re-evaluation by your physician Discharge Instructions: - Discharge Summary Sheet pm1 - Muscle Cramps and Spasms pm1 - Sciatica pm1 Forms: - Medication Reconciliation Form pm1 - Thank You Letter pm1 - Antibiotic Education pm1 - Prescription Opioid Use pm1 Prescriptions: - Lidoderm 5 % Topical adhesive patch,medicated - apply 1 patch by TRANSDERMAL route once daily As needed 12 hours on and 12 pm1 hours off in a 24 hour period; 10 patch; Refills: 0, Product Selection Permitted - Cyclobenzaprine 10 mg Oral Tablet - take 1 tablet by ORAL route every 8 hours As needed; 30 tablet; Refills: 0, pm1 Product Selection Permitted - Diclofenac Sodium 75 mg Oral Tablet Sustained Release - take 1 tablet by ORAL route 2 times per day; 30 tablet; Refills: 0, Product pm1 Selection Permitted Signatures: Dispatcher [employer] João Shelby MD MD cha Marinas, Patrick, [employer] pm1 Freida Rivas, RN RN ll1 Autumn Diaz RN RN jh5
--- NOTE | 2021-06-03 14:13 | ER ---
Nurse's Notes [facility] Name: Emmy Ayala Age: 60 yrs Sex: Female : 1960 Arrival Date: 06/03/2021 Time: 11:38 Bed 30 Private MD: Diagnosis: Lumbago with sciatica, right side Presentation: 06/03 14:08 Chief complaint: Patient states: lower back strain/pain. Coronavirus screen: Vaccine jh5 status: Patient reports receiving the 2nd dose of the covid vaccine. Client denies travel out of the [place] in the last 14 days. At this time, the client does not indicate any symptoms associated with coronavirus-19. Ebola Screen: Patient negative for fever greater than or equal to 101.5 degrees Fahrenheit, and additional compatible Ebola Virus Disease symptoms Patient denies exposure to infectious person. Patient denies travel to an Ebola-affected area in the 21 days before illness onset. Initial Sepsis Screen: Does the patient meet any 2 criteria? No. Patient's initial sepsis screen is negative. Does the patient have a suspected source of infection? No. Patient's initial sepsis screen is negative. Risk Assessment: Do you want to hurt yourself or someone else? Patient reports no desire to harm self or others. Onset of symptoms was June 03, 2021. 14:08 Method Of Arrival: Ambulatory [facility] 14:08 Acuity: JANAK 4 5 Triage Assessment: 14:09 General: Appears uncomfortable, slender, well groomed, well developed, well nourished, [facility] Behavior is calm, cooperative, appropriate for age. Pain: Complains of pain in back. Musculoskeletal: Circulation, motion, and sensation intact. Capillary refill < 3 seconds, Range of motion: intact in all extremities. Historical: - PMHx: 14:09 Depression; Hypertension; jh5 - Immunization history:: Adult Immunizations up to date. - Social history:: Smoking status: Patient denies any tobacco usage or history of. Screenin:09 Abuse screen: Denies threats or abuse. Denies injuries from another. Nutritional 5 screening: No deficits noted. Tuberculosis screening: No symptoms or risk factors identified. Fall Risk None identified. Vital Signs: 14:08 BP 122 / 81; Pulse 68; Resp 18; Temp 98.7; Pulse Ox 99% ; Weight 63.5 kg; Height 5 ft. jh5 9 in. (175.26 cm); 14:08 Body Mass Index 20.67 (63.50 kg, 175.26 cm) [facility] ED Course: 11:38 Patient arrived in ED. ll1 11:48 Mateusz White NP is PHCP. pm1 11:48 João Ortiz MD is Attending Physician. pm1 13:44 Lumbar Spine (3 Views) XRAY In Process Unspecified. EDMS 14:08 Arm band placed on right wrist. jh5 14:09 Triage completed. jh5 14:09 Patient has correct armband on for positive identification. Bed in low position. Call [facility] light in reach. Side rails up X 1. 14:09 No provider procedures requiring assistance completed. Patient did not have IV access [facility] during this emergency room visit. Administered Medications: 12:45 Drug: Ketorolac 60 mg Route: IM; Site: left deltoid; ll1 12:45 Drug: Flexeril (cyclobenzaprine) 10 mg Route: PO; ll1 12:46 Drug: Lidoderm Patch 5 % (700 mg/patch) 1 patches Route: Topical; Site: affected area; ll1 Outcome: 13:58 Discharge ordered by . pm1 14:09 Discharged to home ambulatory. jh5 14:09 Condition: good 14:09 Discharge instructions given to patient, Instructed on discharge instructions, follow up and referral plans. safety practices, Demonstrated understanding of instructions, follow-up care, medications, Prescriptions given X 1. 14:13 Patient left the ED. [facility] Signatures: Dispatcher [employer] [facility] Mateusz White NP OPERATIONS AND INTELLIGENCE ASSISTANT pm1 Freida Rivas, RN RN 1 Autumn Diaz RN RN 5
[2021-06-03 14:18] VITALS: BP 122/81; TEMP 98.7; O2SAT 99
== END 2021-06-03 14:13 | disposition home or self-care (01) ==
LOC: ER 11:30
DX: M54.41 Lumbago with sciatica, right side (principal); I10 Essential (primary) hypertension
CPT/HCPCS: 72100; 96372; 99283